=== PATIENT | male | born 1955 | race Caucasian/White ===

== ENCOUNTER 2016-12-03 05:02 | Observation (INO) ==
--- NOTE | 2016-12-03 05:36 | Emergency Department Note ---
Disposition Clinical Impression: Near syncope, Dizziness Chest pain Qualifiers: Chest pain type: unspecified Qualified Code(s): R07.9 - Chest pain, unspecified Disposition: Admitted As Inpatient Condition: Good General Adult HPI - General Chief complaint: ED General Medical Stated complaint: Numbness, Chest Pain, Time Seen by Provider: 12/03/16 05:04 Source: patient, EMS Limitations: no limitations Nursing Notes Reviewed: Yes - History of Present Illness HPI Narrative: Patient presents today for evaluation of weakness which has been worsening over the last week. Patient states that today he had some chest pain that he took nitro IV as well as worsening dizziness. Patient feels that he may pass out. Patient states that he has significant significant cardiac history which includes a upcoming stress test. Patient states that his weakness in his legs seems to come and go but is not associated with anything in particular. On exam the patient's right leg is weaker than the left. He will undergo a modified chest pain and neuro symptom eval. Pain Scale: 0 - Related Data Home Medications Medication Instructions Recorded Confirmed ALPRAZolam [Xanax 0.25 MG Tablet] 0.25 mg PO BID 07/29/15 07/29/15 Meloxicam [Mobic] 15 mg PO DAILY 07/29/15 07/29/15 Previous Rx's Medication Instructions Recorded Aspirin [Adult Low Dose Aspirin EC] 81 mg PO DAILY #30 tablet. 07/31/15 Atorvastatin [Lipitor] 80 mg PO HS #30 tablet 07/31/15 Clopidogrel [Plavix] 75 mg PO DAILY #30 tablet 07/31/15 Lisinopril [Zestril] 5 mg PO DAILY #30 07/31/15 Metoprolol [Lopressor] 12.5 mg PO BID #60 tablet 07/31/15 Nicotine Patch [Nicoderm] 21 mg TD DAILY #30 patch.td24 07/31/15 Nitroglycerin 0.4 mg SL Q5MIN PRN #90 tab.subl 07/31/15 Allergies Allergy/AdvReac Type Severity Reaction Status Date / Time No Known Allergies Allergy Verified 12/03/16 05:04 Review of Systems: CONSTITUTIONAL: Weakness and fatigue No weight loss, fever, chills, HEENT: Eyes: No visual changes. Ears, Nose, Throat: No hearing loss, difficulty talking or unable to swallow. SKIN: No rash or itching. CARDIOVASCULAR: chest pain, chest pressure; Near syncope. No palpitations or edema. RESPIRATORY: No shortness of breath, cough or sputum. GASTROINTESTINAL: No anorexia, nausea, vomiting or diarrhea. No abdominal pain or blood. GENITOURINARY: No burning on urination or hematuria. NEUROLOGICAL: Dizziness No headache, syncope, paralysis, ataxia, numbness or tingling in the extremities. No change in bowel or bladder control. MUSCULOSKELETAL: Right leg weakness greater than left. No muscle pain, back pain , joint pain or stiffness. Past Medical History - Past Medical History Medical history: Reports: COPD, hyperlipidemia, hypertension, other Surgical history: Reports: other (Right carotid endarterectomy, right subclavian stent.) Psychiatric history: Reports: no psych history - Social History Smoking Status: Current every day smoker Smokeless Tobacco Status: No Alcohol use: Reports: rarely Drug use: Reports: none Physical Exam General appearance: NAD, conversant Eyes: anicteric sclerae, moist conjunctivae; PERRL HENT: Atraumatic; oropharynx clear with moist mucous membranes and no mucosal ulcerations Neck: Normal inspection; Trachea midline; FROM, supple Lungs: CTA, with normal respiratory effort and no intercostal retractions CV: RRR, no MRGs Abdomen: Soft, non-tender; no rebound or gaurding Extremities: No peripheral edema or extremity lymphadenopathy Skin: Normal temperature; no rash, ulcers or lesions Psych: Appropriate mood and affect Neuro: alert and oriented to person, place and time - General Limitations: no limitations General appearance: alert - Expanded Neurological Exam Patient oriented to: Present: person, place, time Speech: Present: fluid speech Cranial nerves: EOM function (II, III, IV, ): Normal, facial sensation (V): Normal, facial palsy (VII): Normal, gag reflex (IX): Normal, spinal accessory function (XI): Normal, tongue deviation (XII): Normal Cerebellar function: finger to nose: Normal, heel to harris: Normal Motor strength - LUE: 5/5 Motor strength - RUE: 5/5 Motor strength - LLE: 4/5 Motor strength - RLE: 5/5 Sensory exam upper extremity: light touch: Normal Sensory exam lower extremity: light touch: Normal Coma Scale Eye Opening: Spontaneous Coma Scale Motor Response: Obeys Commands Coma Scale Verbal Response: Oriented Coma Scale Total: 15 - Psychiatric Psychiatric exam: Present: flat affect - Skin Skin exam: Present: warm, dry Course - Reevaluation(s) Reevaluation #1: After discussing the results with the patient and his mother. Patient's dates that this weakness and dizziness when he stands down to the point that he is unsure go home. He states that he had chest pain that he required nitroglycerin - in the setting of all these symptoms, we will bring the patient in the hospital for further evaluation. He is scheduled for cardiac stress test in a month. Follows with cardiology at our facility. - Consultations Consultation #1: Discussed with Dr. Multani, hospitalist. Pt accepted. Vital Signs Temperature 98.1 F 12/03/16 05:04 Pulse Rate 81 12/03/16 05:04 Respiratory Rate 18 12/03/16 05:04 Blood Pressure 171/73 12/03/16 05:04 O2 Sat by Pulse Oximetry 95 12/03/16 05:04 Temperature 98.1 F 12/03/16 05:04 Pulse Rate 81 12/03/16 05:04 Respiratory Rate 18 12/03/16 05:04 Blood Pressure 171/73 12/03/16 05:04 O2 Sat by Pulse Oximetry 95 12/03/16 05:04 Oxygen Delivery Oxygen Delivery Room Air Medical Decision Making - Lab Data Result diagrams: 12/03/16 05:48 12/03/16 05:48 Lab Results 12/03/16 12/03/16 12/03/16 Range/Units 05:48 05:48 05:48 WBC 13.8 H (4.3-11.1) K/mcL RBC 4.67 (4.19-5.50) M/mcL Hgb 14.9 (12.9-16.9) g/dL Hct 42.4 (37.5-50.1) % MCV 90.8 (83.0-100.0) fL MCH 31.9 (28.0-33.3) pg MCHC 35.1 (31.6-35.5) g/dL RDW 12.7 (11.5-14.5) % Plt Count 252 (140-400) K/mcL MPV 10.0 (9.4-12.4) fL Immature Gran % 0.4 (0-4) % Seg Neutrophils % 74.0 % Lymphocytes % 15.1 % Monocytes % 8.2 % Eosinophils % 1.7 % Basophils % 0.6 % Neutrophils # 10.2 H (1.6-8.9) K/mcL Lymphocytes # 2.1 (0.6-4.6) K/mcL Monocytes # 1.1 (0.0-1.3) K/mcL Eosinophils # 0.2 (0.0-0.6) K/mcL Basophils # 0.1 (0.0-0.2) K/mcL Sodium 135 L (136-145) mEq/L Potassium 3.4 L (3.5-4.5) mEq/L Chloride 104 (98-109) mEq/L Carbon Dioxide 19 (19-29) mEq/L BUN 15 (8-26) mg/dL Creatinine 1.14 (0.72-1.25) mg/dL Est GFR ( Amer) > 60 (> 60) Est GFR (Non-Af Amer) > 60 (> 60) BUN/Creatinine Ratio 13 (6-26) Glucose 162 H (70-99) mg/dL Calculated Osmolality 284 (280-300) Lactic Acid 2.1 (0.5-2.2) mmol/L Calcium 9.8 (8.6-10.8) mg/dL Phosphorus 1.6 L (2.3-4.7) mg/dL Magnesium 2.1 (1.6-2.6) mg/dL Total Bilirubin 0.7 (0.2-1.2) mg/dL AST 22 (5-34) Units/L ALT 26 (0-55) Units/L Alkaline Phosphatase 141 H (38-126) Units/L Troponin I (0-0.03) ng/mL Serum Total Protein 7.5 (6.0-8.3) g/dL Albumin 4.0 (3.5-5.0) g/dL Globulin 3.5 (2.4-3.5) g/dL Albumin/Globulin Ratio 1.1 (1.1-2.2) TSH 1.443 (0.350-4.840) mcIU/mL Urine Color (Yellow) Urine Clarity (Clear) Urine pH (5.0-8.0) pH Units Ur Specific [place] (1.010-1.025) Urine Protein (Neg-Trace) mg/dL Urine Glucose (UA) (Normal) mg/dL Urine Ketones (Negative) mg/dL Urine Blood (Negative) Urine Nitrite (Negative) Urine Bilirubin (Negative) Urine Urobilinogen (Normal) mg/dL Ur Leukocyte Esterase (Negative) Urine Microscopic RBC (0-3) per hpf Urine Microscopic WBC (0-3) per hpf Ur Squamous Epith Cells (None-Few) per lpf Urine Bacteria (None-Few) per hpf Hyaline Casts (None-Few) per lpf Ur Culture Indicated? (NO) 12/03/16 12/03/16 Range/Units 05:48 05:55 WBC (4.3-11.1) K/mcL RBC (4.19-5.50) M/mcL Hgb (12.9-16.9) g/dL Hct (37.5-50.1) % MCV (83.0-100.0) fL MCH (28.0-33.3) pg MCHC (31.6-35.5) g/dL RDW (11.5-14.5) % Plt Count (140-400) K/mcL MPV (9.4-12.4) fL Immature Gran % (0-4) % Seg Neutrophils % % Lymphocytes % % Monocytes % % Eosinophils % % Basophils % % Neutrophils # (1.6-8.9) K/mcL Lymphocytes # (0.6-4.6) K/mcL Monocytes # (0.0-1.3) K/mcL Eosinophils # (0.0-0.6) K/mcL Basophils # (0.0-0.2) K/mcL Sodium (136-145) mEq/L Potassium (3.5-4.5) mEq/L Chloride (98-109) mEq/L Carbon Dioxide (19-29) mEq/L BUN (8-26) mg/dL Creatinine (0.72-1.25) mg/dL Est GFR ( Amer) (> 60) Est GFR (Non-Af Amer) (> 60) BUN/Creatinine Ratio (6-26) Glucose (70-99) mg/dL Calculated Osmolality (280-300) Lactic Acid (0.5-2.2) mmol/L Calcium (8.6-10.8) mg/dL Phosphorus (2.3-4.7) mg/dL Magnesium (1.6-2.6) mg/dL Total Bilirubin (0.2-1.2) mg/dL AST (5-34) Units/L ALT (0-55) Units/L Alkaline Phosphatase (38-126) Units/L Troponin I 0.01 (0-0.03) ng/mL Serum Total Protein (6.0-8.3) g/dL Albumin (3.5-5.0) g/dL Globulin (2.4-3.5) g/dL Albumin/Globulin Ratio (1.1-2.2) TSH (0.350-4.840) mcIU/mL Urine Color Yellow (Yellow) Urine Clarity Cloudy A (Clear) Urine pH 6.0 (5.0-8.0) pH Units Ur Specific [place] 1.017 (1.010-1.025) Urine Protein Negative (Neg-Trace) mg/dL Urine Glucose (UA) Normal (Normal) mg/dL Urine Ketones Negative (Negative) mg/dL Urine Blood Negative (Negative) Urine Nitrite Negative (Negative) Urine Bilirubin Negative (Negative) Urine Urobilinogen Normal (Normal) mg/dL Ur Leukocyte Esterase Small H (Negative) Urine Microscopic RBC 3-5 H (0-3) per hpf Urine Microscopic WBC 5-15 H (0-3) per hpf Ur Squamous Epith Cells Moderate H (None-Few) per lpf Urine Bacteria None Seen (None-Few) per hpf Hyaline Casts None Seen (None-Few) per lpf Ur Culture Indicated? YES A (NO) Attestation Statement - Attestation Attestation: I, Adelso Alfonso MD, personally evaluated this patient and discussed their management with the resident physician. I reviewed the resident's note and agree with the documented findings, medical decision making, and plan of care. 61-year-old male presents to the emergency department with multiple vague complaints. Patient is very poor historian. He complains primarily of just feeling weak and dizzy and lightheaded. No actual loss of consciousness but feels like he is going to pass out. He also had some chest pain at home. Did take nitroglycerin with some relief. He also complains of shortness of breath. He complains of generalized weakness in both lower extremities. On examination patient is a well-developed well-nourished male in no acute distress. He is alert and oriented 3. There is no cyanosis or diaphoresis. Breath sounds are decreased but equal bilaterally with no rales or wheezes noted. Heart regular rate and rhythm. Abdomen soft and nontender with normal bowel sounds. Labs reviewed. Chest x-ray negative. Head CT negative. No acute changes on EKG. The hospitalist, Dr. Multani, was consulted and accepted admission of the patient.
[2016-12-03 06:01] LABS: Basophils # 0.1 K/mcL (0.0-0.2); Basophils % 0.6 %; Eosinophils # 0.2 K/mcL (0.0-0.6); Eosinophils % 1.7 %; Hematocrit 42.4 % (37.5-50.1); Hemoglobin 14.9 g/dL (12.9-16.9); Immature Granulocytes % 0.4 % (0-4); Lymphocytes # 2.1 K/mcL (0.6-4.6); Lymphocytes % 15.1 %; Mean Corpuscular HGB Conc 35.1 g/dL (31.6-35.5); Mean Corpuscular Hemoglobin 31.9 pg (28.0-33.3); Mean Corpuscular Volume 90.8 fL (83.0-100.0); Monocytes # 1.1 K/mcL (0.0-1.3); Monocytes % 8.2 %; Neutrophils # 10.2 K/mcL (1.6-8.9); Platelet Count 252 K/mcL (140-400); Red Blood Count 4.67 M/mcL (4.19-5.50); Red Cell Distribution Width 12.7 % (11.5-14.5)
[2016-12-03 06:04] LABS: Bilirubin,Urine Negative (Negative); Blood,Urine Negative (Negative); Clarity,Urine Cloudy (Clear); Color,Urine Yellow (Yellow); Glucose,Urine (UA) Normal (Normal); Ketones,Urine Negative (Negative); Leukocyte Esterase,Urine Small (Negative); Nitrite,Urine Negative (Negative); Protein,Urine Negative (Neg-Trace); Specific Gravity,Urine 1.017 (1.010-1.025); Urobilinogen,Urine Normal (Normal)
[2016-12-03 06:07] LABS: Bacteria,Urine None Seen per hpf (None-Few); Hyaline Casts,Urine None Seen per lpf (None-Few); Squamous Epithelial Cell,Urine Moderate per lpf (None-Few)
[2016-12-03 06:15] LABS: Alanine Aminotransferase 26 Units/L (0-55); Albumin/Globulin Ratio 1.1 (1.1-2.2); Alkaline Phosphatase 141 Units/L (38-126); Aspartate Amino Transferase 22 Units/L (5-34); BUN/Creatinine Ratio 13 (6-26); Bilirubin,Total 0.7 mg/dL (0.2-1.2); Blood Urea Nitrogen 15 mg/dL (8-26); Calcium 9.8 mg/dL (8.6-10.8); Carbon Dioxide 19 mEq/L (19-29); Chloride 104 mEq/L (98-109); Globulin 3.5 g/dL (2.4-3.5); Glucose 162 mg/dL (70-99); Magnesium 2.1 mg/dL (1.6-2.6); Osmolality,Calculated 284 (280-300); Phosphorous 1.6 mg/dL (2.3-4.7); Potassium 3.4 mEq/L (3.5-4.5); Sodium 135 mEq/L (136-145); Total Protein 7.5 g/dL (6.0-8.3); eGFR For African Americans > 60 (> 60); eGFR For Non-African Americans > 60 (> 60)
[2016-12-03 06:35] LABS: Thyroid Stimulating Hormone 1.443 mcIU/mL (0.350-4.840)
[2016-12-03] MEDS ORDERED: Acetaminophen 325 MG TABLET PO PRN (07:49)
[2016-12-03] MEDS ORDERED: Naloxone 0.4 MG/ML INJ IVP PRN (07:49)
--- NOTE | 2016-12-03 08:51 | Internal Med History&Physical ---
Date of Encounter: 12/03/16 Time of Encounter: 08:00 Assessment and Plan (1) Near syncope Current visit: Yes Status: Acute Patient presenting with symptoms of dizziness lightheadedness/near syncope. We will observe with telemetry. Get carotid Dopplers. 2-D echocardiogram. Monitor vital signs. Check orthostatic blood pressure. (2) Chest pain Current visit: Yes Status: Acute Issue with precordial chest pain. Has underlying coronary artery disease. High risk for ACS/angina. We will monitor with telemetry. Trend troponins. Cardiac stress test. Qualifiers: Chest pain type: precordial pain Qualified Code(s): R07.2 - Precordial pain (3) CAD in [place] artery Current visit: Yes Status: Acute Continue home medications for this condition. Had an episode of chest pain that was relieved with nitroglycerin. (4) HTN (hypertension) Current visit: Yes Status: Chronic Monitor blood pressure. Blood pressure is currently elevated. We will adjust antihypertensives were adjusted accordingly. We will use IV medications to control blood pressure if needed. Qualifiers: Hypertension type: essential hypertension Qualified Code(s): I10 - Essential (primary) hypertension Internal Medicine - H&P: HPI Chief complaint: Near syncope/ shortness of breath and chest pain Admitted From: Emergency Dept Plans for Post Hospital Care: Home History of present illness: Mr. Contreras is a 61 year old male patient with a history of coronary artery disease status post PCI with stent placement last year presented to the ER with complaints of dizziness and feeling like he is just about to pass out that have been going on for 1 week now. His symptoms are not related to activity and can occur while the patient is at rest or while he is ambulating. He denies any palpitations or jerking movements associated with it. He has not passed out completely. He also complains of some shortness of breath that he has had over the same period of time along with chest pain that he developed earlier today. The pain was located in the central part of his chest and nonradiating. His shortness of breath is not associated with any wheezing or cough. The patient is a chronic smoker. He was apparently scheduled to undergo a cardiac stress test next month. Past Med Surg Social Fam HX - Past Medical History Attestation: Yes The following information was validated with the patient. Source: patient Medical history: COPD, hyperlipidemia, hypertension, other Psychiatric history: no psych history - Past Surgical History Surgical History: other (Right carotid endarterectomy, right subclavian stent.) - Social History Smoking Status: Current every day smoker Smokeless Tobacco Status: No Alcohol use: rarely Drug use: none - Family History Mother Living Status: Still Living Hx Family Cardiac Disorders: Yes Internal Medicine - H&P: Meds ALPRAZolam [Xanax 0.25 MG Tablet] 0.25 mg PO BID 07/29/15 [History] Meloxicam [Mobic] 15 mg PO DAILY 07/29/15 [History] Aspirin [Adult Low Dose Aspirin EC] 81 mg PO DAILY #30 tablet.dr 07/31/15 [Rx] Atorvastatin [Lipitor] 80 mg PO HS #30 tablet 07/31/15 [Rx] Clopidogrel [Plavix] 75 mg PO DAILY #30 tablet 07/31/15 [Rx] Lisinopril [Zestril] 5 mg PO DAILY #30 07/31/15 [Rx] Metoprolol [Lopressor] 12.5 mg PO BID #60 tablet 07/31/15 [Rx] Nicotine Patch [Nicoderm] 21 mg TD DAILY #30 patch.td24 07/31/15 [Rx] Nitroglycerin 0.4 mg SL Q5MIN PRN #90 tab.subl 07/31/15 [Rx] Allergies No Known Allergies Allergy (Verified 12/03/16 05:04) All Systems PM: A 10-system review of systems was performed and is negative for pertinent findings except as documented above in the HPI. - Constitutional Constitutional: no chills, no fever(s), no night sweats - EENT Eyes: no change in vision, no discharge, no pain, no photophobia Ears: no ear discharge, no ear pain, no tinnitus Nose, mouth and throat: no dysphagia, no nasal discharge, no neck pain, no sore throat - Cardiovascular Cardiovascular ROS IM: chest pain, dyspnea, lightheadedness, no diaphoresis, no palpitations, no syncope - Respiratory Respiratory: no cough, no dyspnea, no wheezing, no excessive phlegm production - Gastrointestinal Gastrointestinal: no abdominal pain, no diarrhea, no hematemesis, no hematochezia, no melena, no nausea, no vomiting - Musculoskeletal Musculoskeletal ROS IM: no numbness, no tingling - Integumentary Integumentary IM: no rash, no unusual bruising - Neurological Neurological ROS: no confusion, no convulsions, no focal weakness, no numbness, no tingling, no tremor(s) - Hematologic/Lymphatic Hematologic/Lymphatic: no easy bruising - Constitutional Vitals: Temp Pulse Resp BP Pulse Ox 98.1 F 81 18 163/64 95 12/03/16 05:04 12/03/16 05:04 12/03/16 08:25 12/03/16 08:25 12/03/16 05:04 General appearance: Present: cooperative, mild distress, A&O X 3, obese, answers questions appropriately - Eye Eye exam: Present: EOMI, PERRL, conjuntiva pink, sclera anicteric - Neck Neck exam general surgery: Present: supple, trachea midline. Absent: lymphadenopathy - Respiratory Respiratory exam: Present: prolonged expiratory phase. Absent: accessory muscle use, rales, rhonchi, wheezes - Cardiovascular Cardiovascular exam: Present: RRR, +S1, +S2. Absent: diastolic murmur, gallop, rubs, systolic murmur - GI/Abdominal GI/Abdominal exam: Present: normal bowel sounds, soft, no peritoneal signs. Absent: distended, tenderness - Extremities Exam Extremities exam: Present: warm, radial pulses palpable and symetrical. Absent : calf tenderness, cyanotic, pedal edema - Neurological Exam Neurological exam: Present: alert, oriented X3, no focal deficits. Absent: facial droop, speech deficit - Skin Skin exam: Present: dry, intact Internal Med - H&P Results - Labs CBC & Chem 7: 12/03/16 05:48 12/03/16 05:48 - Impressions Impressions Chest X-Ray 12/03/16 05:17 IMPRESSION: 1. No acute cardiopulmonary disease. D/ / Tony Alexander MD / Tony Alexander MD Interpreting Provider: Tony Alexander MD Head CT 12/03/16 05:19 IMPRESSION: No acute intracranial abnormality. D/ / Leonardo Michelle MD / Leonardo Michelle MD Interpreting Provider: Leonardo Michelle MD
[2016-12-03] MEDS ORDERED: Ipratropium/Albuterol Neb 3 ML IH PRN (09:05)
[2016-12-03] MEDS ORDERED: 0.9 % Sodium Chloride 1,000 ML IVC SCH (09:15)
[2016-12-03] MEDS ORDERED: Regadenoson 0.4 MG/5 ML SYRINGE IVP ONE (12:09)
--- NOTE | 2016-12-03 14:20 | Nuclear Medicine Stress Report ---
Regadenoson Nuclear Stress Name: Aquilino Contreras Date of Study: 12/03/2016 Date: 1955 Ht: 70.0 in Medical Record#: [id number] Age: 61 Wt: 237.0 lb Gender: Male Order #: [id number] Location: [facility] Room: [facility] Supervising Provider: Meir Kirk CNP Reading Physician: Sabiha Bowers DO Ordering Physician: Cynthia Correa CNP Stress Technologist: Krista Anaya EMT BASIC, CCT Ecclesiastical Worker: Bj Cain Indications: Chest Pain Impression: Perfusion imaging was negative for ischemia or infarct. Pharmacologic ECG was negative for ischemia at the level of heart rate achieved. Gated EF = 63%. History: Hypertension History of Smoking Prior PCI Stress Test Summary: Stress Test Type: Pharmacologic Regadenoson 0.4mg/5ml given IV Baseline Information: Initial Heart Rate: 74 Blood Pressure: 130/62 Stress Information: Test Terminated Due to (primary): As per protocol Maximum Blood Pressure: 132/78 Maximum Heart Rate: 108 Percent Maximum Heart Rate Achieved: 67 Double Product: 11480 METS Reached: 1 Symptoms: Shortness of breath, No chest symptoms Nuclear Summary: SPECT myocardial perfusion imaging using Tc99m Sestamibi given intravenously was performed at rest and following cardiac stress testing. The resting images were obtained following initial dose of 11.0 mCi. Following stress an additional dose of 30.1 mCi was given at peak exercise or 30 seconds post regadenoson infusion. Medication Given: Time Medication Dose Units Route Findings: Stress Note * Resting ECG demonstrated normal sinus rhythm with probable early repolarization and prominent voltage. * Pharmacologic stress ECG is negative for ischemia at level of heart rate achieved. * Rare PACs noted during stress. * Patient had no chest pain during stress. Hemodynamic responses * Normal hemodynamic responses to pharmacologic stress. Study Quality * Study quality was fair. Motion correction applied. Gated EF % * Gated EF = 63%. Left Ventricle * The left ventricle is not dilated. NORMALS * Normal wall motion. TID * No evidence of transient ischemic dilatation. Lung Uptake * There is no evidence of increase lung uptake. PERFUSION * Mild intensity perfusion defect involving the inferior wall during rest that improves with stress. Findings represent artifact. * Other segments demonstrate normal rest and stress perfusion. Updated by Sabiha Bowers on 12/03/2016 2:15:26 PM electronically signed on 12/03/2016 2:16:41 PM with status of Final
--- NOTE | 2016-12-03 14:50 | Electrocardiograph Report ---
[address] [address] Test Date: 2016-12-03 Pat Name: Aquilino Contreras Department: 103 Room: 3B54 Gender: M [employer] Executive Director: IAIN : 1955 Requested By: Camron Olivia Order Number: [id number] Reading MD: Sabiha Bowers Measurements Intervals [place] Rate: 78 P: 61 GA: 154 QRS: 54 QRSD: 102 T: 59 QT: 342 QTc: 376 Interpretive Statements SINUS RHYTHM Electronically Signed On 12-03-2016 14:48:22 EDT by Sabiha Bowers
[2016-12-03] MEDS ORDERED: Nitroglycerin 0.4 MG TAB.SUBL SL PRN (20:13)
[2016-12-03] MEDS ORDERED: Nitroglycerin 0.4 MG TAB.SUBL SL ONE (20:47)
[2016-12-03] MEDS: Lisinopril 20 MG TABLET PO SCH (21:27)
[2016-12-04 03:40] LABS: Hemoglobin A1C 7.6 %
[2016-12-04 03:47] LABS: Chol/HDL Ratio 9.1 (0-4.9)
[2016-12-04] MEDS ORDERED: NON-FORMULARY MEDICATION 1 EACH EACH (Pantoprazole Sodium [Protonix] 40 MG) PO SCH (09:00)
[2016-12-04] MEDS: Aspirin Enteric Coated 81 MG Tablet PO SCH (10:23)
[2016-12-04] MEDS: Lisinopril 20 MG TABLET PO SCH (10:23)
[2016-12-04] MEDS ORDERED: D5% in Water 1,000 ML IVC PRN (13:02)
[2016-12-04] MEDS ORDERED: Dextrose Gel 15 GM PO PRN ×2 (13:02)
[2016-12-04] MEDS ORDERED: *HR* Dextrose 50 % in Water (Syg) 50 ML SYRINGE IVP PRN (13:02)
--- NOTE | 2016-12-04 13:04 | Internal Med Progress Note ---
Date of Encounter: 12/04/16 Time of Encounter: 12:30 - Assessment and plan (1) Near syncope Current Visit: Yes Status: Acute Assessment and plan: Patient reports sudden onset weakness and fatigue 1 day. He reports GERD symptoms that started the night before he came to the emergency department. Patient states that the symptoms started at rest when he was watching TV. Patient told the admitting physician. He had dizziness and near syncope that amiodarone per week. He tells the admitting physician that can occur while the patient is at rest or if he is ambulating. He denies syncope. He tells me that he has not had chest pain. Admitting physician notes said that he did have chest pain yesterday. Pain was midsternal and nonradiating with shortness of breath. Carotid preliminary. RT ICA and ECA unable to clearly be identified. LT ICA about 40-59% stenosis may be marked in higher range by vascular physician. Dampened waveforms noted in RT subclavan vein; patient has history of stent on RT sub v. RT CCA velocities appear low and dampened noted to be similar on 07-28 carotid report. Physicians report is pending. Ordered CTA head and neck in response to this report. Echo done today showed LVEF 60% wtih normal LV chamber size and function. Mild concentric LV hypertrophy and mild LV diastolic dysfunction. Normal RV structure and function. No evidence of pulmonary hypertension and no significant valvular dysfunction. Stress test negative for ischemia or infarct, gated EF=63% (2) Chest pain Current Visit: Yes Status: Acute Assessment and plan: Patient denied chest pain to me, however, patient reported midsternal chest pain that was nonradiating yesterday prior to arrival. He is scheduled to undergo a cardiac stress test next month. Test results as above. Patient is pain-free at this time. Continue telemetry Qualifiers: Chest pain type: unspecified Qualified Code(s): R07.9 - Chest pain, unspecified (3) Type 2 diabetes mellitus Current Visit: Yes Status: Acute Assessment and plan: New diagnosis. No prior history. A1c is 7.6 and estimated plasma glucose is 171. I have started sliding scale insulin, Accu-Cheks before meals at bedtime, diabetic and cardiac diet. Refer to coding educator. Qualifiers: Diabetes mellitus complication status: without complication Diabetes mellitus skilled nursing insulin use: without railroad construction director use Qualified Code(s): E11.9 - Type 2 diabetes mellitus without complications (4) HTN (hypertension) Current Visit: Yes Status: Chronic Assessment and plan: Well-controlled in inpatient setting. Continue home medications. Qualifiers: Hypertension type: essential hypertension Qualified Code(s): I10 - Essential (primary) hypertension (5) CAD in [place] artery Current Visit: Yes Status: Acute Assessment and plan: Plan as above - Time Spent With Patient less than 15 minutes - Subjective Interval history: Patient was seen and assessed after lunch. He was ambulating in the hallway. Patient appears to be a rather poor historian. He reports to me that he had approximately 1 day history of weakness and fatigue and heartburn symptoms prior to coming to the emergency department. He denies any other history other than an VT in the past, he was unsure when. He says that he felt like he is going to pass out from being tired and weak. Patient was unaware that he was diabetic. I explained to him that we would be putting him on medication when he went home and that I would like for him to see the coding educator. He was in agreement. He denies chest pain or shortness of breath. He received a quick page from another hospital who had received the results of the carotid Dopplers. Head and neck CTAs were ordered in response to that. They are not back at this point, they are not done yet. - Constitutional Vitals: Temp Pulse Resp BP Pulse Ox 97.5 F L 94 17 151/78 95 12/04/16 10:48 12/04/16 10:48 12/04/16 10:48 12/04/16 10:48 12/04/16 10:48 General appearance: Present: cooperative, mild distress, A&O X 3, pleasant, no acute distress, obese, answers questions appropriately - Head Head exam: Present: normal inspection - Eye Eye exam: Present: normal appearance, conjuntiva pink - ENT ENT exam: Present: mucous membranes moist, normal exam - Neck Neck exam general surgery: Present: normal inspection. Absent: lymphadenopathy , tenderness - Respiratory Respiratory exam: Present: CTAB. Absent: rales, respiratory distress, rhonchi, stridor, wheezes - Cardiovascular Cardiovascular exam: Present: RRR, +S1, +S2. Absent: diastolic murmur, systolic murmur - GI/Abdominal GI/Abdominal exam: Present: normal bowel sounds, soft. Absent: hepatomegaly, tenderness - Extremities Exam Extremities exam: Present: normal inspection, warm, radial pulses palpable and symetrical. Absent: pedal edema, tenderness - Neurological Exam Neurological exam: Present: alert, oriented X3. Absent: facial droop, speech deficit - Skin Skin exam: Present: dry, normal color, warm. Absent: rash Internal Medicine: Result - Labs CBC & Chem 7: 12/03/16 05:48 12/03/16 05:48 Consult Discharge Plan - Plan Referrals: Leanne Strange DO [Primary Care Provider] -
[2016-12-04] MEDS: Insulin LISPRO 300 UNITS/3 ML VIAL SQ SCH (16:22)
--- NOTE | 2016-12-04 17:02 | Vascular/Endovasc Consult Note ---
Date of Encounter: 12/04/16 Time of Encounter: 17:00 Assessment and Plan (1) Carotid artery disease Status: Chronic The pathophysiology and natural history of carotid artery stenosis was discussed with the patient and all questions were answered. The patient was recently admitted with dizziness and lightheadedness of several days duration. He underwent a carotid duplex that was abnormal. 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 He also has a 75% left internal carotid artery stenosis. He previously underwent a right carotid endarterectomy and a right innominate artery stent in 2008. He has not seen a vascular surgeon since 2011. He currently denies symptoms of CVA, TIA or amaurosis fugax. He reports nondisabling right upper extremity claudication. He denies rest pain, ulceration or gangrene. Surgery is contraindicated for his right internal carotid artery occlusion. He will need continued surveillence of his left internal carotid artery stenosis. He will follow-up in clinic in 6 months with a repeat carotid duplex. He was instructed to seek immediate medical attention for signs or symptoms of CVA, TIA or amaurosis fugax. He will continue with daily ASA and Plavix. Qualifiers: Laterality: bilateral Qualified Code(s): I77.9 - Disorder of arteries and arterioles, unspecified (2) HTN (hypertension) Status: Chronic He was counseled regarding atherosclarotic risk factor reduction. Qualifiers: Hypertension type: essential hypertension Qualified Code(s): I10 - Essential (primary) hypertension (3) Tobacco abuse Status: Chronic He was counseled regarding smoking cessation. (4) CAD in [place] artery Status: Chronic (5) HLD (hyperlipidemia) Status: Chronic Qualifiers: Hyperlipidemia type: mixed hyperlipidemia Qualified Code(s): E78.2 - Mixed hyperlipidemia (6) Type 2 diabetes mellitus Status: Chronic Qualifiers: Diabetes mellitus complication status: without complication Diabetes mellitus coin teller insulin use: without usp use Qualified Code(s): E11.9 - Type 2 diabetes mellitus without complications - History of Present Illness Consult date: 12/04/16 Requesting physician: Cynthia Correa Consult reason: Carotid stenosis Chief complaint: dizziness History of present illness: Mr. Contreras is a 61 year old male with a history of hypertension, hyperlipidemia and tobacco abuse. The patient has a hsitory of carotid stenosis and aperipheral vascular disease. He underwent a right carotid endarterectomy in 2008 and an innominate artery stent in 2008. The patient has seen a vascular surgeon in more than 5 years. He was admitted to [facility] with complaints of intermittent dizziness during the last few days. He reports that his symptoms have now resolved. As part of his evaluation, he underwent a carotid duplex and CTA and was found to have a right carotid artery occlusion an and innominate artery occlusion. He denies any recent symptoms of CVA, TIA or amaurosis fugax. He denies disabling claudication, rest pain, ulceration or gangrene. Vascular surgery was consulted for further evaluation. He denies chest pain or shortness of breath. Past Med Surg Social Fam HX - Past Medical History Medical history: COPD, hyperlipidemia, hypertension, other Psychiatric history: no psych history - Past Surgical History Surgical History: vascular surgery (right carotid endarterectomy 2008, innonminate artery stent 2008), other - Social History Smoking Status: Current every day smoker Packs per day: 1 Smokeless Tobacco Status: No Alcohol use: rarely Drug use: none - Family History Mother Living Status: Still Living Hx Family Cardiac Disorders: Yes Medications and Allergies Aspirin [Adult Low Dose Aspirin EC] 81 mg PO DAILY #30 tablet.dr 07/31/15 [Rx] Clopidogrel [Plavix] 75 mg PO DAILY #30 tablet 07/31/15 [Rx] Nitroglycerin 0.4 mg SL Q5MIN PRN #90 tab.subl 07/31/15 [Rx] Lisinopril [Zestril] 20 mg PO DAILY 12/03/16 [History] Metoprolol [Lopressor] 25 mg PO BID 12/03/16 [History] Pantoprazole Sodium [Protonix] 40 mg PO DAILY 12/03/16 [History] metFORMIN [Glucophage] 500 mg PO BIDWM #60 tablet 12/05/16 [Rx] Allergies No Known Allergies Allergy (Verified 12/03/16 05:04) All Systems Review: A 10-system review of systems was performed and is negative for pertinent findings except as documented above in the HPI. - Constitutional Constitutional: no chills, no fatigue, no fever(s), no headache(s) - Cardiovascular Cardiovascular: no chest pain at rest, no chest pain with exertion, no dyspnea at rest, no dyspnea on exertion Exam Vital Signs, Last 4 Hours Temp Pulse Resp BP Pulse Ox 12/04/16 15:33 98.0 F 72 16 145/74 96 General: Present: Conversant, No Apparent Distress, Well nourished HEENT: Present: Atraumatic, Normocephaly, Trachea midline, Pupils equal Neck: Absent: JVD, Left Carotid bruit, Right Carotid bruit Cardiac: Present: Reg Rate and Rhythm, Normal S1 and S2, No Murmur Lungs: Present: Normal Breath Sounds, No Wheeze, Rales, Rhonchi Neuro: Present: Alert and responsive, No focal deficits noted, Cranial nerves grossly intact, Motor nerves grossly intact, Sensory nerves grossly intact Abdomen: Present: Soft, Non-tender. Absent: Hepatosplenomegaly, Masses Vascular: Present: Normal capillary refill, Pulse, diminished (right radial pulses is absent). Absent: Cyanosis, Edema Skin: Present: No rashes noted on visualized skin. Absent: Wound/ulcer(s) Musculoskeletal: Absent: No Chest Wall Tenderness Consult Discharge Plan - Plan Instructions: Metformin (By mouth), Chest Pain (DC), How to Check Your Blood Sugar (DC), Diabetic Foot Care (DC), Diabetes Mellitus Type 2 in Adults (DC), Meal Planning with Diabetes Exchanges (DC) Referrals: Leanne Strange DO [Primary Care Provider] - Prescriptions: metFORMIN [Glucophage] 500 mg PO BIDWM #60 tablet
[2016-12-04] MEDS ORDERED: Insulin LISPRO 300 UNITS/3 ML VIAL SQ SCH (21:00)
[2016-12-05 07:50] VITALS: BP 133/75
[2016-12-05] MEDS: Insulin LISPRO 300 UNITS/3 ML VIAL SQ SCH (08:03)
[2016-12-05 08:13] LABS: BUN/Creatinine Ratio 14 (6-26); Blood Urea Nitrogen 16 mg/dL (8-26); Calcium 9.8 mg/dL (8.6-10.8); Carbon Dioxide 22 mEq/L (19-29); Chloride 106 mEq/L (98-109); Glucose 99 mg/dL (70-99); Osmolality,Calculated 285 (280-300); Potassium 4.1 mEq/L (3.5-4.5); Sodium 137 mEq/L (136-145); eGFR For African Americans > 60 (> 60); eGFR For Non-African Americans > 60 (> 60)
[2016-12-05] MEDS: Lisinopril 20 MG TABLET PO SCH (08:18)
[2016-12-05] MEDS: Aspirin Enteric Coated 81 MG Tablet PO SCH (08:18)
[2016-12-05 09:05] LABS: Basophils # 0.1 K/mcL (0.0-0.2); Basophils % 0.9 %; Eosinophils # 0.4 K/mcL (0.0-0.6); Eosinophils % 3.1 %; Hematocrit 43.5 % (37.5-50.1); Hemoglobin 14.9 g/dL (12.9-16.9); Immature Granulocytes % 0.4 % (0-4); Lymphocytes # 2.5 K/mcL (0.6-4.6); Lymphocytes % 19.8 %; Mean Corpuscular HGB Conc 34.3 g/dL (31.6-35.5); Mean Corpuscular Hemoglobin 32.3 pg (28.0-33.3); Mean Corpuscular Volume 94.2 fL (83.0-100.0); Mean Platelet Volume 10.5 fL (9.4-12.4); Monocytes # 1.3 K/mcL (0.0-1.3); Monocytes % 10.3 %; Neutrophils # 8.2 K/mcL (1.6-8.9); Platelet Count 248 K/mcL (140-400); Red Blood Count 4.62 M/mcL (4.19-5.50); Red Cell Distribution Width 13.1 % (11.5-14.5); Segmented Neutrophils % 65.5 %
--- NOTE | 2016-12-05 09:17 | Discharge Summary ---
Date of Encounter: 12/05/16 Time of Encounter: 09:13 - Discharge Diagnosis (1) HTN (hypertension) Priority: Secondary Status: Chronic Qualifiers: Hypertension type: essential hypertension Qualified Code(s): I10 - Essential (primary) hypertension (2) Tobacco abuse Priority: Secondary Status: Acute (3) Carotid artery disease Priority: Primary Status: Chronic Qualifiers: Laterality: bilateral Qualified Code(s): I77.9 - Disorder of arteries and arterioles, unspecified (4) CAD in [place] artery Priority: Secondary Status: Acute (5) HLD (hyperlipidemia) Priority: Secondary Status: Acute Qualifiers: Hyperlipidemia type: mixed hyperlipidemia Qualified Code(s): E78.2 - Mixed hyperlipidemia (6) Near syncope Priority: Secondary Status: Acute (7) Chest pain Priority: Secondary Status: Acute Qualifiers: Chest pain type: unspecified Qualified Code(s): R07.9 - Chest pain, unspecified (8) Type 2 diabetes mellitus Priority: Secondary Status: Acute Qualifiers: Diabetes mellitus complication status: without complication Diabetes mellitus ad terminal makeup operator insulin use: without half-way use Qualified Code(s): E11.9 - Type 2 diabetes mellitus without complications - Discharge Medications Prescriptions: metFORMIN [Glucophage] 500 mg PO BIDWM #60 tablet Home Medications: Aspirin [Adult Low Dose Aspirin EC] 81 mg PO DAILY #30 tablet. 07/31/15 [Rx] Clopidogrel [Plavix] 75 mg PO DAILY #30 tablet 07/31/15 [Rx] Nitroglycerin 0.4 mg SL Q5MIN PRN #90 tab.subl 07/31/15 [Rx] Lisinopril [Zestril] 20 mg PO DAILY 12/03/16 [History] Metoprolol [Lopressor] 25 mg PO BID 12/03/16 [History] Pantoprazole Sodium [Protonix] 40 mg PO DAILY 12/03/16 [History] metFORMIN [Glucophage] 500 mg PO BIDWM #60 tablet 12/05/16 [Rx] Allergies/Adverse Reactions: Allergies No Known Allergies Allergy (Verified 12/03/16 05:04) Procedures/tests Complete & Pending: Procedures Performed prior 72 hours Category Date Time Status CT angio head [CT] Routine Cat Scan 12/04/16 10:26 Completed CTA Neck [CT angio neck] [CT] Routine Cat Scan 12/04/16 10:26 Completed NM miguel a perf SPECT multi [NM] Routine Exams 12/03/16 07:50 Taken EV carotid duplex imaging BI Routine Y 12/03/16 09:01 Completed EV echocardiogram Routine Y 12/04/16 07:00 Completed SP pharm nuclear stress Routine Y 12/03/16 09:00 Completed Date of admission: 12/03/16 07:30 Primary care physician: Leanne Strange DO Consults: 12/03/16 15:10 Consult to Business Analyst Project Manager [CONS] Routine Reason for SW Consult: concern over financial situation. pt also stated that recently there has not been enough food for himself and his . 12/04/16 13:25 Consult to Bone Char Kiln Tender [CONS] Routine Comment: Reason for Consult: New diagnosis. A1c 7.6. 12/04/16 16:52 Consult to Vascular Surgery [CONS] Routine Consulting Provider: Vascular Surgery Valeri Reason for Consult: CTA neck results discussed with Dr. Hassan by phone Time Notified: 16:53 Call Completed: Yes - Patient Status Disposition: Home, Self-Care Condition: Good Functional capacity at discharge: independent ambulation Overall status at discharge: patient is back to baseline - Discharge Instructions Follow Up With: Leanne Strange DO [Primary Care Provider] - - Diet and Activity Activity: increase activity as tolerated Diet: diabetic diet, low fat, low cholesterol, low salt diet Hospital course: Mr. Contreras is a 61 year old male with past medical history of hypertension, coronary artery disease, carotid stenosis status post carotid stent placement and drug-eluting stent placement to the LAD last year who presented to the hospital for evaluation of lightheadedness, feeling faint and chest pain. His initial EKG was normal and troponin was negative. He was placed in observation. Serial troponin was obtained and found to be negative. His chest pain had resolved and he has been chest pain-free for the last 48 hours. He had a stress test which was negative. Echocardiogram showed LVH, no valvular dysfunction, normal EF. He had head and neck CT angiogram which showed complete occlusion of the right internal carotid artery and stenosis of the left internal carotid artery. Vascular surgery was consulted and they recommended no surgical intervention. They reinforced adherence to medical treatment and lifestyle modifications and follow-up outpatient in 6 months. The patient currently reports that the lightheadedness and presyncopal symptoms have completely resolved. He was able to ambulate with no difficulty. He is currently asymptomatic. During this hospitalization he was newly diagnosed with type 2 diabetes mellitus. He was treated with insulin sliding scale while inpatient and tow truck dispatcher was consulted. His hemoglobin A1c was 7.6. He will be discharged on metformin. We recommend close follow-up with primary care physician. I have reinforced the importance of smoking cessation for his cardiovascular health and provided counseling. Per vascular surgery consult dated 12/04/2016: "He underwent a right carotid endarterectomy and right innominate artery stent in 2008. He has not followed up since 2011. He currently denies symptoms of CVA, TIA or amaurosis fugax. He reports nondisabling right upper extremity claudication. He denies rest pain , ulceration or gangrene. Surgery is contraindicated for his right internal carotid artery occlusion. He will need continued surveillence of his left internal carotid artery stenosis. He will follow-up in clinic in 6 months with a repeat carotid duplex. He was instructed to seek immediate medical attention for signs or symptoms of CVA, TIA or amaurosis fugax. He will continue with daily ASA and Plavix." Time spent discussing smoking cessation with patient: 3 to 10 minutes - Time Spent with Patient Total time spent providing and/or coordinating discharge services: - Constitutional Vitals: Temp Pulse Resp BP Pulse Ox 98.3 F 67 17 133/75 96 12/05/16 07:46 12/05/16 07:46 12/05/16 07:46 12/05/16 07:46 12/05/16 07:46 General appearance: Present: cooperative, mild distress, A&O X 3, pleasant, no acute distress, obese, answers questions appropriately - Eye Eye exam: Present: PERRL, conjuntiva pink, sclera anicteric Pupils: Present: PERRL - Respiratory Respiratory exam: Present: CTAB. Absent: accessory muscle use, rales, rhonchi, wheezes - Cardiovascular Cardiovascular exam: Present: RRR, +S1, +S2. Absent: diastolic murmur, gallop, rubs, systolic murmur
--- NOTE | 2016-12-05 19:38 | Carotid Imaging Report ---
Carotid Duplex Patient Name:Aquilino Contreras Order Number:[id number] Procedure Date:12/04/2016 Date:1955ge:61 yrs Gender:Male Lt BP:160 / 70 mmHg Rt.BP:110 / 70 mmHgHeart Rate: Location:[facility] Room #: 3B54 Fabric And Accessories Estimator:Gricelda Sol RVT, WEI Referring MD:Ponce Multani MD shotblast operator:None Reading MD:Faustino Rodrigues MD Primary Indications:syncope Risk Factors Yes/No Diabetes No Hypertension Yes Smoking Current Yes Impressions: Findings: Left proximal ICA has a severe, 60-79% stenosis. with post stenotic flow. The right subclavian demonstates atypical flow Recommendations: Futher evaluation is recommended. Test completed on 12/04/2016 at 10:19:20 am. Critical findings reported to Dr. Multani by phone at 10:19:30 am on 12/04/2016 by Gricelda Sol RVT, WEI. Findings There was a 50 mmHg difference between the right and left brachial pressures. Carotid Duplex: Right: The right proximal common carotid artery has a PSV of 22 cm/s and a EDV of 9 cm/s. The right mid common carotid artery has a PSV of 24 cm/s and a EDV of 15 cm/s. The right distal common carotid artery has a PSV of 35 cm/s and a EDV of 16 cm/s. The right bifurcation has a PSV of 42 cm/s and a EDV of 20 cm/s. The right vertebral artery has a PSV of 98 cm/s and a EDV of 25 cm/s. The right subclavian artery has a PSV of 70 cm/s. The right bifurcation, right proximal internal carotid, right mid internal carotid, right distal internal carotid and right eca arteries were not well visualized. Left: The left proximal common carotid artery has turbulent flow with plaque with a PSV of 145 cm/s and a EDV of 38 cm/s. There is smooth heterogeneous plaque. The left mid common carotid artery has turbulent flow with plaque with a PSV of 149 cm/s and a EDV of 39 cm/s. There is smooth heterogeneous plaque. The left distal common carotid artery has turbulent flow with plaque with a PSV of 172 cm/s and a EDV of 44 cm/s. There is smooth heterogeneous plaque. The left bifurcation has turbulent flow with plaque with a PSV of 198 cm/s and a EDV of 33 cm/s. There is smooth heterogeneous plaque. There is 40-59% stenosis in the left proximal internal carotid artery with a PSV of 163 cm/s and a EDV of 33 cm/s. There is smooth heterogeneous plaque. There is 40-59% stenosis in the left mid internal carotid artery with a PSV of 183 cm/s and a EDV of 47 cm/s. There is smooth heterogeneous plaque. The left distal internal carotid artery has a PSV of 141 cm/s and a EDV of 33 cm/s. The left eca has a PSV of 174 cm/s and a EDV of 12 cm/s. The left vertebral artery has a PSV of 89 cm/s and a EDV of 40 cm/s. The left subclavian artery has a PSV of 192 cm/s. Carotid Results Right PSV EDV Assessment Proximal CCA 22 9 Normal Mid CCA 24 15 Normal Distal CCA 35 16 Normal Bifurcation 42 20 Not Well Visualized Vertebral Artery 98 25 Subclavian 70 Atypical flow Left PSV EDV Assessment Proximal CCA 145 38 Mid CCA 149 39 Distal CCA 172 44 Bifurcation 198 33 Proximal ICA 163 33 40-59% stenosis Mid ICA 183 47 40-59% stenosis Distal ICA 141 33 Post stenotic flow ECA 174 12 Non Stenotic Plaque Vertebral Artery 89 40 Normal Subclavian 192 Normal Ratio's Left ICA/CCA Ratio: 1.23 Updated by Faustino Rodrigues MD on 12/05/2016 7:34:13 PM electronically signed on 12/05/2016 7:34:26 PM with status of Final
== END 2016-12-05 12:18 | disposition home or self-care (01) ==
LOC: 3BNU 05:02 → EMEROO 05:02 → SUATTDRO 07:30 → 3BNU 09:20
PROVIDERS: ADMIT Internal Medicine; ATTEND Internal Medicine